=== PATIENT | female | born 1940 | race Caucasian/White ===

== ENCOUNTER 2021-11-25 13:15 | Emergency (ER) | payer MEDICARE, BC ==
[~2021-11-25] VITALS: Ht 167.6 cm; Wt 81.6 kg
--- NOTE | 2021-11-25 13:20 | NUR ---
MD at bedside, medical screening exam in progress.
[2021-11-25] MEDS ORDERED: QUET25TA PO (14:34)
[2021-11-25] MEDS ORDERED: FAMO-132 PO (14:34)
[2021-11-25] MEDS ORDERED: LEVE500T20 PO (14:34)
[2021-11-25] MEDS ORDERED: IBUP-1957 PO (14:34)
[2021-11-25] MEDS ORDERED: ONDA4TAB11 PO (14:34)
[2021-11-25] MEDS ORDERED: LEVO100T10 PO (14:34)
[2021-11-25] MEDS ORDERED: ALPR0.255 PO (14:34)
[2021-11-25] MEDS ORDERED: GABA-532 PO (14:34)
[2021-11-25] MEDS ORDERED: SERT50TA PO (14:34)
[2021-11-25] MEDS ORDERED: ATOR80TA PO (14:34)
[2021-11-25] MEDS ORDERED: TRAZ-182 PO (14:34)
[2021-11-25] MEDS ORDERED: AMLO10TA59 PO (14:34)
[2021-11-25] MEDS ORDERED: DIVA-78 PO (14:34)
[2021-11-25] MEDS ORDERED: HALOPERIDOL LACTATE 5 MG/1 ML VIAL ONE ×2 (14:58→19:09)
[2021-11-25] MEDS ORDERED: HALOPERIDOL LACTATE 5 MG/1 ML VIAL IM ONE ×2 (15:00→19:15)
[2021-11-25 15:53] LABS: HEMATOCRIT 37.9 % (31.2-41.9); MEAN CORPUSCULAR HEMOGLOBIN 29.9 uug (24.7-32.8); MEAN CORPUSCULAR VOLUME 90.4 fL (75.5-95.3); PLATELET COUNT (AUTO) 176 K/uL (179-408)
[2021-11-25 15:58] LABS: CARBON DIOXIDE 29 mmol/L (21-32); CHLORIDE 105 mmol/L (98-107); CREATININE 0.8 mg/dL (0.6-1.3); GLUCOSE 101 mg/dL (74-106); POTASSIUM 3.6 mmol/L (3.5-5.1); UREA NITROGEN, BLOOD 23 mg/dL (7-18)
[2021-11-25] MEDS ORDERED: HALOPERIDOL LACTATE 5 MG/1 ML VIAL IV ONE (19:00)
--- NOTE | 2021-11-25 19:55 | NUR ---
Pt out of ER for CT.
[2021-11-25] MEDS ORDERED: MAGNESIUM CITRATE 296 ML BOTTLE PO ONE (20:00)
--- NOTE | 2021-11-25 20:10 | NUR ---
Pt back to ER from CT.
[2021-11-25] MEDS ORDERED: FLEET ENEMA 133 ML BOTTLE RC ONE (21:40)
--- NOTE | 2021-11-25 23:26 | NUR ---
Called [facility] to transport patient back to [facility], eta 70 min.
[2021-11-25] MEDS ORDERED: BISA-79 PO (23:33)
[2021-11-25] MEDS ORDERED: DOCU250C14 PO (23:33)
[2021-11-25] MEDS ORDERED: BISA10SU61 RC (23:33)
--- NOTE | 2021-11-26 01:40 | NUR ---
[facility] ambulance arrived to ER to transport patient back to [facility]. Report and documentation given to EMT.
[2021-11-26 01:57] VITALS: BP 154/85
== END 2021-11-26 01:58 ==
LOC: ER 13:15
DX: S32.029D Unspecified fracture of second lumbar vertebra, subsequent encounter for fracture with routine healing (principal); W19.XXXD Unspecified fall, subsequent encounter; F03.90 Unspecified dementia, unspecified severity, without behavioral disturbance, psychotic disturbance, mood disturbance, and anxiety; Z66 Do not resuscitate; F32.A Depression, unspecified; F41.9 Anxiety disorder, unspecified; Z79.899 Other long term (current) drug therapy; I49.3 Ventricular premature depolarization; R94.8 Abnormal results of function studies of other organs and systems
CPT/HCPCS: 36415; 70450; 72125; 72128; 72131; 72192; 73020; 80048; 84484 ×2; 85025; 93005; 96372 ×2; 99285; J1630 ×2; A4663